=== PATIENT | female | born 1960 | race Caucasian/White ===

== ENCOUNTER 2016-11-07 08:09 | Emergency (ER) | payer OTHER ==
[~2016-11-07] VITALS: Ht 160 cm; Wt 80.3 kg
[2016-11-07 08:13] VITALS: BP 148/89
--- NOTE | 2016-11-07 08:31 | ED UPPER/LOWER EXTREMITY COMPL ---
History of Present Illness General Chief Complaint: Lower Extremity Problems Stated Complaint: HIP/LEG PAIN Source: patient Exam Limitations: no limitations Vital Signs & Intake/Output Vital Signs & Intake/Output Vital Signs Date Time Temp Pulse Resp B/P B/P Pulse O2 O2 Flow FiO2 Mean Ox Delivery Rate 11/07 0813 97.2 64 20 148/89 97 Room Air Reconcile Medications Cyclobenzaprine HCl 10 MG TABLET 1 TAB PO QPM PRN MUSCLE RELAXOR Hydrocodone/Acetaminophen (Vicodin 5-300 MG Tablet) 5 MG-300 MG TABLET 1 TAB PO BID PRN PAIN Ketorolac Tromethamine 10 MG TABLET 1 TAB PO TID PRN PAIN Triage Note: PT C/O PAIN IN HER RIGHT WAIST THAT SHOOTS DOWN HER RIGHT LEG SINCE YESTERDAY. PT DENIES INJURY Triage Nurses Notes Reviewed? yes Onset: Gradual Duration: getting worse Timing: recent history Severity: severe Severity Numbers: 7 Method of Injury: unknown No Modifying Factors: none Modifying Factors: Improves With: rest. Worsens With: movement. HPI: Patient is a 56-year-old female who presents emergency room saying that yesterday she woke up with a gradual onset of mild right lateral and posterior hip discomfort which she states that throughout the day with ambulation and activity her symptoms became worse and today while after waking up from sleep her symptoms have worsened the point where she now limps. Patient tried ibuprofen with minimal relief of symptoms. Patient denies any mechanism of injury. Denies any back pain denies any extremity paresthesia weakness or numbness. Denies any skin rash. (GRIS TANG) Allergies Coded Allergies: aspirin (STOMACH BURNING 11/07/16) latex (SWELLING 11/07/16) (NICOLE LOPEZ,KEANU) Past History Travel History Traveled to [place] past 21 day No Medical History Any Pertinent Medical History? none Neurological: NONE EENT: NONE Cardiovascular: NONE Respiratory: NONE Gastrointestinal: NONE Hepatic: NONE Renal: NONE Musculoskeletal: NONE Psychiatric: NONE Endocrine: NONE Surgical History Surgical History: non-contributory Psychosocial History What is your primary language Filipino Tobacco Use: Quit >30 days ago ETOH Use: occasional use Illicit Drug Use: denies illicit drug use Family History Hx Contributory? No (GRIS TANG) Review of Systems Review of Systems Constitutional: Reports: no symptoms. EENTM: Reports: no symptoms. Respiratory: Reports: no symptoms. Cardiovascular: Reports: no symptoms. Gastrointestinal/Abdominal: Reports: no symptoms. Genitourinary: Reports: no symptoms. Musculoskeletal: Reports: see HPI, joint pain, muscle pain. Skin: Reports: no symptoms. Neurological/Psychological: Reports: no symptoms. Hematologic/Endocrine: Reports: no symptoms. Immunological: Reports: no symptoms. All Other Systems: Reviewed and Negative (GRIS TANG) Physical Exam Physical Exam General Appearance: no apparent distress, alert, comfortable Neurologic/Tendon: normal sensation, normal motor functions, normal tendon functions, responds to pain, no evidence tendon injury, no pulse deficit Skin: intact, normal color, warm/dry Comments: Well-developed well-nourished person in no acute distress HEENT: Normal EENT exam, Neck: Supple, no lymphadenopathy, normal range of motion without pain or tenderness Back: Nontender, no CVA tenderness. Cardiovascular: Regular rate and rhythms no murmurs rubs or gallops, normal JVP Respiratory: Chest nontender. No respiratory distress.breath sounds clear to auscultation bilaterally Abdomen: Soft, nontender nondistended, no appreciable organomegaly. Normal bowel sounds. No ascites Extremity: No edema, no calf tenderness to palpation, normal and equal pulses. Right hip normal inspection noted posterior and lateral gluteal point tenderness full active range of motion of hip movements, full resisted range of motion noted with pain with hip abduction and flexion 5 out 5 strength Right lower extremity dermatomes intact, myotomes intact Neuro: Alert oriented x3, motor sensory normal, Skin: No appreciable rash on exposed skin, skin is warm and dry. Psych: Mood and affect is normal, memory and judgment is normal. (GRIS TANG) Progress Differential Diagnosis: arterial insufficiency, compartment syndrome, contusion, dislocation, DVT, fracture, gout, septic arthritis, sprain, tendon injury Plan of Care: Current Medications Sig/Luis Start time Last Medication Dose Stop Time Status Admin Ketorolac 30 MG ONCE ONE 11/08 0745 UNVr Tromethamine 11/08 0746 (Toradol) No signs of rash or herpes zoster on exam. Patient denies any mechanism of injury no trauma patient does not warrant emergent x-rays for osseous injury concern. Patient has reproducible pain upon musculoskeletal right hip movements of muscular action which due to history of present illness and exam findings ice suspected patient to have muscular strain which patient will be treated with anti-inflammatories. Patient was offered crutches and declines. Patient's right lower extremity was neurovascularly intact (GRIS TANG) Departure Departure Disposition: HOME OR SELF CARE Condition: Stable Clinical Impression Primary Impression: Right hip pain Referrals: DENNIS LOPEZ,ALINE Fraga (PCP/Family) Additional Instructions: As discussed begin icing the area directly 20 minutes every 2 hours. begin the prescription ketorolac for pain and inflammation. Begin the prescription of cyclobenzaprine for muscle relaxation. Begin the prescription of Vicodin for breakthrough pain relief. If no better in 5 days follow-up with primary care doctor. Prescription is waiting at [facility] pharmacy. Departure Forms: Customer Survey General Discharge Information Prescriptions: Current Visit Scripts Ketorolac Tromethamine 1 TAB PO TID PRN PAIN #15 TAB Cyclobenzaprine HCl 1 TAB PO QPM PRN MUSCLE RELAXOR #7 TAB Hydrocodone/Acetaminophen (Vicodin 5-300 MG Tablet) 1 TAB PO BID PRN PAIN #8 TAB (GRIS TANG) PA/DUDE WRANGLER Co-Sign Statement Statement: ED Attending supervision documentation- [] I saw and evaluated the patient. I have also reviewed all the pertinent lab results and diagnostic results. I agree with the findings and the plan of care as documented in the PA's/DUDE WRANGLER's documentation. [X] I have reviewed the ED Record and agree with the PA's/DUDE WRANGLER's documentation. [] Additions or exceptions (if any) to the PAs/DUDE WRANGLER's note and plan are summarized below: [] (NICOLE LOPEZ,KEANU)
[2016-11-07] MEDS ORDERED: VICODIN 5-3001 EACH PO (08:42)
[2016-11-07] MEDS ORDERED: KETOROLAC TROME10 M1 PO (08:42)
[2016-11-07] MEDS ORDERED: CYCLOBENZAPRINE10 M1 PO (08:42)
== END 2016-11-07 08:53 ==
LOC: ERH 08:09
DX: M25.551 Pain in right hip (principal)
CPT/HCPCS: 96372; J1885